=== PATIENT | male | born 1990 | race Caucasian/White ===

== ENCOUNTER 2022-07-09 00:29 | Emergency (ER) | payer BC ==
[2022-07-09] MEDS: Sodium Chloride 0.9% 1,000 ML IV ONE (00:47)
[2022-07-09] MEDS: Ketorolac 30 MG/ML SDV IVPUSH ONE (00:50)
[2022-07-09] MEDS: diphenhydrAMINE 50 MG/ML SDV IVPUSH ONE (01:28)
[2022-07-09] MEDS: Metoclopramide 10 MG/2 ML SDV IVPUSH ONE (01:30)
[2022-07-09] MEDS: Butorphanol 2 MG/ML SDV IVPUSH ONE (01:44)
== END 2022-07-09 02:24 | disposition home or self-care (01) ==
LOC: DL.ED 00:29
DX: G44.009 Cluster headache syndrome, unspecified, not intractable (principal)
CPT/HCPCS: 96361; 96374; 96375; 99282; 99283-25; J0595; J1200; J1885; J2765; J7030

== ENCOUNTER 2022-08-08 10:28 | Emergency (ER) | payer BC ==
[2022-08-08] MEDS ORDERED: Lidocaine 1% 5 ML VIAL INJECT ONE (10:34)
[2022-08-08] MEDS ORDERED: Bacitracin Oint 1 GM U/D Packet TOP ONE (10:35)
== END 2022-08-08 11:20 | disposition home or self-care (01) ==
LOC: DL.ED 10:28
DX: S61.210A Laceration without foreign body of right index finger without damage to nail, initial encounter (principal); W26.0XXA Contact with knife, initial encounter; Y92.89 Other specified places as the place of occurrence of the external cause; Y99.0 Civilian activity done for income or pay
CPT/HCPCS: 12001; 99282; A9270-GY; J3490